=== PATIENT | male | born 1995 | race Caucasian/White ===

== ENCOUNTER 2017-01-20 15:20 | Emergency (ER) | payer SELFPAY ==
--- NOTE | 2017-01-20 16:28 | RADIOLOGY REPORT (SQ) ---
EXAM DESCRIPTION: HAND RIGHT 3 VIEWS COMPLETED DATE/TIME: 01/20/2017 4:18 pm REASON FOR STUDY: injury COMPARISON: None. TECHNIQUE: Three views right hand LIMITATIONS: None. FINDINGS: A minimally displaced fractures seen of the proximal metacarpal of the thumb at the wrist. IMPRESSION: Fracture proximal metacarpal of the thumb. TECHNICAL DOCUMENTATION: JOB ID: [id number] [employer]- All Rights Reserved
[2017-01-20] MEDS ORDERED: OXYCODONE-ACETAMINOPHEN 5-325 MG TABLET PO ONE (16:36)
--- NOTE | 2017-01-20 17:09 | ER Document Report ---
HPI - HPI Patient complains to provider of: right hand injury Onset: Other Onset/Duration: Sudden Quality of pain: Throbbing Severity: Severe Pain Level: 5 Context: Patient states cabinet fell on right hand 2 days ago. Complains of pain and swelling. Associated Symptoms: None Exacerbated by: Movement Relieved by: Denies Similar symptoms previously: No Recently seen / treated by doctor: No - ROS ROS below otherwise negative: Yes Systems Reviewed and Negative: Yes All other systems reviewed and negative - CONSTITUTIONAL Constitutional: DENIES: Fever - EENT EENT: DENIES: Congestion - NEURO Neurology: DENIES: Headache - CARDIOVASCULAR Cardiovascular: DENIES: Chest pain - RESPIRATORY Respiratory: DENIES: Trouble Breathing - GASTROINTESTINAL Gastrointestinal: DENIES: Abdominal Pain - URINARY Urinary: DENIES: Dysuria - MUSCULOSKELETAL Musculoskeletal: REPORTS: Extremity pain - right hand - DERM Skin Color: Normal Skin Problems: Abrasion - right forehead and right hand Past Medical History - General Information source: Patient - Social History Smoking Status: Current Every Day Smoker Chew tobacco use (# tins/day): No Frequency of alcohol use: None Drug Abuse: None Lives with: Family Family History: Reviewed & Not Pertinent Patient has suicidal ideation: No Patient has homicidal ideation: No - Medical History Medical History: Negative Surgical Hx: Negative - Immunizations Hx Diphtheria, Pertussis, Tetanus Vaccination: Yes Vertical Provider Document - CONSTITUTIONAL Agree With Documented VS: Yes Exam Limitations: No Limitations General Appearance: WD/WN, No Apparent Distress - INFECTION CONTROL TRAVEL OUTSIDE OF THE [place] IN LAST 30 DAYS: No - HEENT HEENT: Normocephalic - RESPIRATORY Respiratory: Breath Sounds Normal, No Respiratory Distress O2 Sat by Pulse Oximetry: 100 - CARDIOVASCULAR Cardiovascular: Regular Rate, Regular Rhythm - MUSCULOSKELETAL/EXTREMETIES Musculoskeletal/Extremeties: Tender - Right hand, Edema, Eccymosis - NEURO Level of Consciousness: Awake, Alert, Appropriate - DERM Integumentary: Rash - Abrasions noted across right fourth and fifth distal metacarpals. Also superficial abrasions to right forehead. Course - Vital Signs Vital signs: Temp Pulse Resp BP Pulse Ox 98.4 F 61 20 137/88 H 100 01/20/17 15:26 01/20/17 15:26 01/20/17 15:26 01/20/17 15:26 01/20/17 15:26 Procedures - Immobilization Right Hand Pre-Proc Neuro Vasc Exam: Normal Immobilizer type: Thumb spica, Sling Performed by: PCT Post-Proc Neuro Vasc Exam: Normal Alignment checked and good: Yes Discharge - Discharge Clinical Impression: Fracture of thumb, right, closed Qualifiers: Encounter type: initial encounter Phalanx: proximal Fracture alignment: displaced Qualified Code(s): S62.511A - Displaced fracture of proximal phalanx of right thumb, initial encounter for closed fracture Condition: Good Disposition: HOME, SELF-CARE Additional Instructions: Ice and elevate hand Keep abrasions clean and dry Motrin every 8 hours as needed for pain, Percocet as needed Finish all antibiotics to keep abrasions from getting infected Follow-up with orthopedic doctor tomorrow morning, call for appointment. Return as needed Prescriptions: Cephalexin [Cephalexin 500 MG Capsule] 1 cap PO QID #28 capsule Oxycodone HCl/Acetaminophen [Percocet 5-325 mg Tablet] 1 - 2 tab PO ASDIR PRN # 15 tablet PRN Reason: Forms: Return to Work Referrals: ALBA PARSONS MD [ACTIVE STAFF] - Follow up as needed
[2017-01-20 17:29] VITALS: BP 128/76
== END 2017-01-20 17:20 | disposition home or self-care (01) ==
LOC: ER 15:20
PROC: 2W3CX1Z Immobilization of Right Lower Arm using Splint (ICD-10-PCS; principal; 2017-01-20)
DX: S62.511A Displaced fracture of proximal phalanx of right thumb, initial encounter for closed fracture (principal); W20.8XXA Other cause of strike by thrown, projected or falling object, initial encounter; F17.200 Nicotine dependence, unspecified, uncomplicated
CPT/HCPCS: 99283

== ENCOUNTER 2017-05-24 13:02 | Emergency (ER) | payer SELFPAY ==
[2017-05-24 13:13] VITALS: BP 161/88
[2017-05-24] MEDS ORDERED: HYDROCODONE/ACETAMINOPHEN 5-325 MG TABLET PO ONE (13:24)
[2017-05-24] MEDS ORDERED: AMOXICILLIN TRIHYDRATE 500 MG CAPSULE PO ONE (13:24)
--- NOTE | 2017-05-24 13:26 | ER Document Report ---
ED Oral Problem - General Chief Complaint: Jaw Pain Stated Complaint: POSSIBLE ABSCESS Time Seen by Provider: 05/24/17 13:17 Mode of Arrival: Ambulatory Information source: Patient Notes: Patient is a 21-year-old male who presents to the ER today for pain and swelling to his right gumline around tooth #29. Patient states he does not have a dentist just moved here from [place]. Patient denies any fevers or chills but admits to pain. He denies any drainage. TRAVEL OUTSIDE OF THE [place] IN LAST 30 DAYS: No - Related Data Allergies/Adverse Reactions: No Known Allergies Allergy (Verified 05/24/17 13:03) Past Medical History - General Information source: Patient - Social History Smoking Status: Unknown if Ever Smoked Family History: Reviewed & Not Pertinent Renal/ Medical History: Denies: Hx Peritoneal Dialysis - Immunizations Hx Diphtheria, Pertussis, Tetanus Vaccination: Yes Review of Systems - Review of Systems Constitutional: No symptoms reported EENT: See HPI Cardiovascular: No symptoms reported Respiratory: No symptoms reported Gastrointestinal: No symptoms reported Genitourinary: No symptoms reported Male Genitourinary: No symptoms reported Musculoskeletal: No symptoms reported Skin: No symptoms reported Hematologic/Lymphatic: No symptoms reported Neurological/Psychological: No symptoms reported Physical Exam - Vital signs Vitals: Temp Pulse Resp BP Pulse Ox 98.3 F 73 18 161/88 H 96 05/24/17 13:11 05/24/17 13:11 05/24/17 13:11 05/24/17 13:11 05/24/17 13:11 - Notes Notes: PHYSICAL EXAMINATION: GENERAL: uncomfortable appearing, but in no acute distress. HEAD: Atraumatic, normocephalic. EYES: Pupils equal round and reactive to light, extraocular movements intact, sclera anicteric, conjunctiva are normal. ENT: ear canals without erythema or foreign body, TMs pearly [place] with good bony landmarks, nares patent, oropharynx clear without exudates. Moist mucous membranes. Very poor dentition, erythema and tenderness to gumline around tooth #29, no fluctuance or abscess noted NECK: Normal range of motion, supple without lymphadenopathy LUNGS: CTAB and equal. No wheezes rales or rhonchi. HEART: Regular rate and rhythm without murmurs EXTREMITIES: Normal range of motion, no pitting edema. No cyanosis. NEUROLOGICAL: Cranial nerves grossly intact. Normal sensory/motor exams. PSYCH: Normal mood, normal affect. SKIN: Warm, Dry, normal turgor, no rashes or lesions noted Course - Vital Signs Vital signs: Temp Pulse Resp BP Pulse Ox 98.3 F 73 18 161/88 H 96 05/24/17 13:11 05/24/17 13:11 05/24/17 13:11 05/24/17 13:11 05/24/17 13:11 Discharge - Discharge Clinical Impression: Dental infection Condition: Stable Disposition: HOME, SELF-CARE Additional Instructions: Return immediately for any new or worsening symptoms. Follow up with primary care provider, call tomorrow to make followup appointment. Prescriptions: Amoxicillin 500 mg PO TID #30 capsule Ibuprofen [Motrin 800 mg Tablet] 800 mg PO Q8H PRN #30 tab PRN Reason: Referrals: [facility] [Provider Group] - Follow up as needed
== END 2017-05-24 13:36 | disposition home or self-care (01) ==
LOC: ER 13:02
DX: K04.7 Periapical abscess without sinus (principal); R68.84 Jaw pain; M79.89 Other specified soft tissue disorders
CPT/HCPCS: 99283